=== PATIENT | male | born 1950 | race Hispanic/Latino ===

== ENCOUNTER 2017-09-06 16:43 | Outpatient (CLI) | payer OTHER | END 2017-09-06 16:44 | disposition home or self-care (01) | LOC: BICRAD 16:43 | PROVIDERS: ATTEND Family Medicine | DX: J18.9 Pneumonia, unspecified organism (principal); I51.7 Cardiomegaly; J98.4 Other disorders of lung | CPT/HCPCS: 71046 ==

== ENCOUNTER 2022-06-30 10:07 | Outpatient (CLI) | payer OTHER | END 2022-06-30 10:08 | disposition home or self-care (01) | LOC: BICRAD 10:07 | PROVIDERS: ATTEND Family Medicine | DX: R79.89 Other specified abnormal findings of blood chemistry (principal) | CPT/HCPCS: 71046 ==